=== PATIENT | female | born 1990 | race Hispanic/Latino ===

== ENCOUNTER 2025-04-06 19:36 | Emergency (ER) | payer SELFPAY | END 2025-04-06 22:03 | disposition home or self-care (01) | LOC: CSHERS 19:36 | DX: O99.893 Other specified diseases and conditions complicating puerperium (principal); R82.71 Bacteriuria; M53.3 Sacrococcygeal disorders, not elsewhere classified; Z3A.29 29 weeks gestation of pregnancy | CPT/HCPCS: 76815 ==

== ENCOUNTER 2025-06-19 11:36 | Day surgery (SDC) | payer SELFPAY ==
[2025-06-19] MEDS ORDERED: hydrALAZINE 20 MG/ML VIAL SLOW IVP PRN (12:23)
== END 2025-06-19 16:00 | disposition home or self-care (01) ==
LOC: CSHLD/OP 11:36
PROVIDERS: ATTEND Obstetrics & Gynecology
DX: O47.1 False labor at or after 37 completed weeks of gestation (principal); O09.523 Supervision of elderly multigravida, third trimester; Z3A.39 39 weeks gestation of pregnancy; Z88.1 Allergy status to other antibiotic agents

== ENCOUNTER 2025-06-20 07:11 | Day surgery (SDC) | payer SELFPAY ==
[2025-06-20] MEDS ORDERED: hydrALAZINE 20 MG/ML VIAL SLOW IVP PRN (08:22)
[2025-06-20] MEDS: Acetaminophen 500 MG TAB PO SCH (08:36)
== END 2025-06-20 08:40 | disposition home or self-care (01) ==
LOC: CSHLD/OP 07:11
PROVIDERS: ATTEND Obstetrics & Gynecology
DX: O47.1 False labor at or after 37 completed weeks of gestation (principal); O99.891 Other specified diseases and conditions complicating pregnancy; R51.9 Headache, unspecified; O09.523 Supervision of elderly multigravida, third trimester; Z3A.39 39 weeks gestation of pregnancy; Z88.1 Allergy status to other antibiotic agents; Z79.899 Other long term (current) drug therapy
CPT/HCPCS: 99285